=== PATIENT | male | born 2000 | race Caucasian/White ===

== ENCOUNTER 2021-04-06 17:17 | Emergency (ER) | payer OTHER, BC ==
[2021-04-06] MEDS ORDERED: Diphtheria,Pertussis(Acell),Tetanus Vaccine 0.5 ML Syringe IM ONE (18:35)
[2021-04-06 18:36] VITALS: BP 150/84; PULSE 98
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
== END 2021-04-06 19:12 | disposition home or self-care (01) ==
LOC: FB.ED 17:17
DX: S40.011A Contusion of right shoulder, initial encounter (principal); S80.811A Abrasion, right lower leg, initial encounter; S60.511A Abrasion of right hand, initial encounter; Z23 Encounter for immunization; V86.59XA Driver of other special all-terrain or other off-road motor vehicle injured in nontraffic accident, initial encounter; Y92.410 Unspecified street and highway as the place of occurrence of the external cause
CPT/HCPCS: 71046; 73030-RT; 73130-RT; 90471; 90715; 99284-25

== ENCOUNTER 2022-08-22 21:30 | Emergency (ER) | payer BC, OTHER ==
[2022-08-22] MEDS ORDERED: Lidocaine 2% 20 ML MDV INFILT ONE (21:31)
[2022-08-22 21:51] VITALS: BP 152/93; PULSE 85
== END 2022-08-22 22:37 | disposition home or self-care (01) ==
LOC: FB.ED 21:30
DX: S61.011A Laceration without foreign body of right thumb without damage to nail, initial encounter (principal); W26.8XXA Contact with other sharp object(s), not elsewhere classified, initial encounter
CPT/HCPCS: 12001; 99282